=== PATIENT | male | born 1990 | race Caucasian/White ===

== ENCOUNTER 2021-02-17 05:55 | Emergency (ER) | payer SELFPAY ==
--- NOTE | ~2021-02-17 | XR_ITS ---
EXAMINATION: XR CHEST CLINICAL INFORMATION: Rib pain. Injury 3 weeks ago. COMPARISON: None TECHNIQUE: 2 views of the chest were obtained. FINDINGS: The lungs are well expanded. There is no focal consolidation, edema, or effusion. No pneumothorax. The cardiomediastinal silhouette is within normal limits. No acute osseous abnormality. XR/XR chest 2V IMPRESSION: Clear lungs. No displaced fractures are seen. If there is continued concern for rib fracture, consider dedicated rib radiographs.
[2021-02-17 06:08] VITALS: BP 137/91; PULSE 84; RESP 16; TEMP 36.3; O2SAT 97; BMI 35.9
--- NOTE | 2021-02-17 06:37 | ED.GENADULT ---
HPI - General Adult General Chief complaint: General Medical Stated complaint: extreme rip pain for aprox 3 weeks Time Seen by Provider: 02/17/21 06:19 History of Present Illness HPI narrative: 31-year-old male without significant past medical history states that approximately 3 weeks ago he was vomiting profusely and had leaned over the railing in afterwards had some right lower rib discomfort without shortness of breath, fevers, chills and states that it remained tender for the past 3 weeks and then developed worsening of the pain after he again had another vomiting episode this past Wednesday. Again, he denies any fever, chills, shortness of breath except on deep inspiration secondary to the pain and otherwise denies chest pain / palpitations, nausea, vomiting, abdominal pain. Related Data Previous Rx's Medication Instructions Recorded ketorolac 10 mg PO Q6H PRN 5 Days #20 tab 02/17/21 Allergies Allergy/AdvReac Type Severity Reaction Status Date / Time No Known Allergies Allergy Verified 02/17/21 06:07 Review of Systems Review of Systems: Pertinent positives and negatives as stated in HPI 10 point review of systems is otherwise negative. [facility] Past Medical History Source: nursing notes reviewed Social History Social History Advance Directives: No Advance Directives Information Provided: No Physical Exam Vital Signs: Vital Signs: Last Vital Signs Temp 97.4 F 02/17/21 06:08 Pulse 84 02/17/21 06:08 Resp 16 02/17/21 06:08 BP 137/91 H 02/17/21 06:08 Pulse Ox 97 02/17/21 06:08 Body Mass Index 35.9 VITAL SIGNS: Reviewed. GENERAL: Well developed, well nourished, in no acute distress. HEAD: Normocephalic/atraumatic EYES: PERRLA, EOMI EARS: Ext canals without abnormality OROPHARYNX: no oral lesions noted, posterior pharynx clear NECK: Supple, no adenopathy LUNGS: Normal breath sounds. No adventitious sounds or accessory muscle use. SpO2<97>, palpation over left lower anterior chest wall without crepitus mild tenderness on palpation. CARDIOVASCULAR: Regular rate and rhythm without noted murmurs ABDOMEN: Soft, non-tender, non-distended with bowel sounds. SKIN: Inspection of the skin reveals no rashes, ulcerations, jaundice, pallor, or petechiae. NEUROLOGIC: Alert and oriented x 4. Strength and sensation to light touch were grossly intact x 4. Course Course Course Narrative: 31-year-old male with history and clinical presentation consistent with costochondritis/anterior chest wall muscle spasm and review of x-ray negative for acute fracture, pneumonia. All results were discussed with patient at bedside, and he was provided with combination analgesics as well as a lidocaine patch and discharged home in stable condition. Discharge Plan Discharge Clinical Impression: Acute costochondritis, Muscle strain of anterior chest wall Patient Disposition: Home, Self-Care Instructions: Muscle Strain (ED), Costochondritis (ED) Additional Instructions: 1. Tylenol 1000 mg, orally, every 6 hours as needed for pain control. Do not exceed 4000 mg within 24 hours. 2. Recommend lidocaine patch, these are available [id number] and should be apply to area of maximal tenderness as directed on the outside packaging. 3. Please follow-up with your primary care provider in the next 2-3 days for re-evaluation. Return to the ER for acute worsening of your symptoms. Prescriptions: New ketorolac 10 mg tablet 10 mg PO Q6H PRN (Reason: pain) 5 Days Qty: 20 RF: 0 Referrals: Physician,Unknown [Primary Care Provider] - 2 days Interventions: ED Discharge Assessment Last Done: 02/17/21 07:06 Discharge Date/Time: 02/17/21 07:06
[2021-02-17] MEDS: Ketorolac Tromethamine 15 MG/ML VIAL IM (06:58)
[2021-02-17] MEDS: Acetaminophen 325 MG TABLET 975 MG PO (06:59)
[2021-02-17] MEDS: Lidocaine 4 % Patch ADH..PATCH 1 PATCH TRANSDERMA (06:59)
== END 2021-02-17 07:06 | disposition home or self-care (01) ==
PROVIDERS: Emergency Provider Student in an Organized Health Care Education/Training Program
DX: S29.011A Strain of muscle and tendon of front wall of thorax, initial encounter (principal); M94.0 Chondrocostal junction syndrome [Tietze]; X58.XXXA Exposure to other specified factors, initial encounter; Y93.9 Activity, unspecified; Y92.9 Unspecified place or not applicable; Y99.9 Unspecified external cause status
CPT/HCPCS: 71046; 96372; 99283; 99284; J1885

== ENCOUNTER 2021-10-13 19:24 | Emergency (ER) | payer MEDICAID, SELFPAY ==
[2021-10-13 19:28] VITALS: BP 149/87; PULSE 98; RESP 18; TEMP 36.9; O2SAT 98; BMI 34.4
[2021-10-13 22:42] VITALS: BP 131/72; PULSE 82; RESP 18; O2SAT 97
--- NOTE | 2021-10-13 22:46 | ED_ITS ---
HPI - Skin/Abscess/Foreign Bdy General Chief complaint: Skin/Abscess/Foreign Body Stated complaint: abcess on lower back Time Seen by Provider: 10/13/21 22:46 Source: patient Mode of arrival: ambulatory Limitations: no limitations History of Present Illness HPI narrative: This is a 31-year-old male presenting to the emergency department with a recurrent pilonidal cyst that requires draining. Patient tells me that this cyst comes and goes frequently and at times requires draining, he tells me he has had this when coming on for weeks. He tells me at this time it is very painful. He is supposed to get this is surgically removed however he is waiting for his insurance to roll in so it can get covered. He reports 05/25 pain to site. He denies fevers, chills, nausea, vomiting, abdominal pain, chest pain, s hortness of breath. MD complaint: abscess/boil Onset (ago): week(s) Tetanus up to date: yes Location: buttocks Severity: severe Severity scale (1-10): 10 Quality: burning and constant Pain Consistency: constant Relieving factors: none Exacerbating factors: palpation and other (Weightbearing/sitting on) Context: none Associated symptoms: denies other symptoms Treatments prior to arrival: none Related Data Previous Rx's Medication Instructions Recorded ketorolac 10 mg tablet 10 mg PO Q6H PRN 5 Days #20 tab 02/17/21 cephalexin 500 mg tablet 500 mg PO Q6H 10 Days #40 tab 10/13/21 doxycycline hyclate 100 mg capsule 100 mg PO BID 10 Days #20 cap 10/13/21 oxycodone 5 mg capsule 5 mg PO Q6H PRN #10 cap 10/13/21 Allergies Allergy/AdvReac Type Severity Reaction Status Date / Time No Known Allergies Allergy Verified 10/13/21 19:28 Review of Systems Review of Systems: Constitutional : No Fever, No Chills, Cardiovascular : No Chest Pain, No SOB Respiratory : No Dyspnea Gastrointestinal : No abdominal pain Musculoskeletal : No Joint Swelling Skin : No rash, No skin laceration, + abscess. Neuro : No Weakness, No Numbness Psych : No SI/HI Yes all other systems are reviewed and are negative PMFSH Past Medical History Attestation statement: The following information was validated with the patient. Source: old records reviewed and nursing notes reviewed Social History Social History Advance Directives: No Advance Directives Information Provided: No Physical Exam Vital Signs: Vital Signs: Last Vital Signs Temp 98.5 F 10/13/21 19:28 Pulse 82 10/13/21 22:42 Resp 18 10/13/21 22:42 BP 131/72 10/13/21 22:42 Pulse Ox 97 10/13/21 22:42 BMI result Body Mass Index 34.4 VSS Appearance: Alert.? Oriented X3.? No acute distress.? Head: Normocephalic, atraumatic, no step-offs or deformities Eyes: Pupils equal, round and reactive to light.? ENT: Pharynx normal.? Neck: Normal inspection.? Neck supple.? CVS: Normal heart rate and rhythm.? Pulses normal.? Respiratory: No respiratory distress.? Breath sounds normal.? Abdomen: Soft and nontender.? Skin: Skin warm and dry.? Normal skin color.? Normal skin turgor.?+ large painf ul pilonidal cyst measuring about 5 cm x 5 cm. The inferior portion of the pilonidal cyst is a fluctuant however the superior portion of it is indurated. Extremities: No lower extremity edema.? No calf ttp. 5/5 strength to bilateral upper and lower extremities Back: No midline tenderness, no C-spine tenderness, full range of motion, no CVA tenderness bilaterally Neuro: Oriented X 3.? No motor deficit.? No sensory deficit. CN 2-12 intact Course Reevaluation(s) Reevaluation #1: Incision and drainage was done, minimal amount of pus exposed from area less than 5 cc however a lot of blood was exposed from the area. Packing was applied. Patient tolerated procedure well. He tells me he immediately feels relief to the area. He will be discharged home on doxycycline and Keflex. And I will send him home with oxycodone to his pharmacy. Advised him to follow-up with General surgery. Time: 23:15 Reevaluation #2: Upon re-evaluation area is no longer bleeding, patient reports severe pain at the site.Patient is in severe pain will give him oxycodone 5 mg p.o. now as patient is not driving home his brother will pick him up. Advised him to follow-up with surgery, he tells me he will call tomorrow morning to follow up with Dr. Summers. Time: 23:42 MDM - Skin/Abscess/Foreign Bdy MDM Narrative Medical decision making narrative: 1049 31 yo m camilla requesting for a recurrent pilonidal cyst to be drained report severe pain at the site, has been there for weeks. Physical examination significant for a large pilonidal cyst, mos areas are indurated however the inferior portion of it has some fluctuance to it. Plan at this time is to drain the area. Medical Records Attestation: I reviewed the patient's medical records. Lab Data Attestation: I reviewed the patient's lab results. Procedures Abscess I/D Site: alma-rectal Local Anesthetic: lidocaine 2% Amount of anesthesia used (mL): 5 Technique: incised with blade Amount of fluid expressed (mL): 10 Sent for culture/gram staining?: No Irrigation: Yes Packing used?: plain Critical Care Time Critical Care Time Critical Care Time: No Discharge Plan Discharge Clinical Impression: Chronic recurrent pilonidal cyst Patient Disposition: Home, Self-Care Instructions: Pilonidal Cyst (ED), Pilonidal Cyst Excision (DC) Additional Instructions: Take your medications as prescribed. If you were prescribed antibiotics today, it is important that you take your medication to their entirety, do not skip any doses, do not finish them early. Follow-up with your primary care provider this week. Follow-up with General surgery call to schedule an appointment tomorrow Apply warm compresses to the area Return to the emergency department with new or worsening symptoms. Such as fevers, chills, worsening pain, redness to the area, discharge from the area chest pain, shortness of breath, nausea, vomiting, abdominal pain, weakness, lethargy. In case of emergency call 911 Oxycodone has been sent to her pharmacy, this can make you constipated. Please consider taking an [id number] stool softener to help with this. Please do not operate motor vehicle, or drive while taking this. Prescriptions: New doxycycline hyclate 100 mg capsule 100 mg PO BID 10 Days Qty: 20 0RF cephalexin 500 mg tablet 500 mg PO Q6H 10 Days Qty: 40 0RF oxycodone 5 mg capsule 5 mg PO Q6H PRN (Reason: pain) Qty: 10 0RF Rx Instructions: Patient can partially filled prescription upon request No Action ketorolac 10 mg tablet 10 mg PO Q6H PRN (Reason: pain) 5 Days Qty: 20 0RF Rx Instructions: Patient received IM Toradol in the emergency room. Referrals: Lalo Summers MD [Physician] - 1 day Physician,None [Primary Care Provider] - 2 days Stand Alone Forms: Work/School Release
[2021-10-13] MEDS: Lidocaine HCl 2 % MPF 5 ML VIAL SUBCUT (22:49)
[2021-10-13] MEDS: oxyCODONE HCl Immed Release 5 MG TABLET PO (23:58)
[2021-10-13 23:59] VITALS: BP 126/68; PULSE 64; RESP 16; O2SAT 98
--- NOTE | 2021-10-14 00:03 | PC.NURSE ---
provider into assess pt. pt medicated for pain upon discharge. dressing clean dry and intact. Reviewed follow up appointments and medications. pt verbalized understanding.
--- NOTE | 2021-10-14 11:59 | MHC.CM.PN ---
Attempted to meet with patient in regards to discharge planning. Patient currently sleeping. 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 Spoke with patient's HCP, Son via telephone at [phone]. Patient is total care. Copy of HCP verified to be on file. IMM explained and sent to Son's address via certified mail to: [address] [place] [phone]. Patient will return to [facility] via BLS when medically stable. Continue to monitor for d/c needs.
== END 2021-10-14 00:04 | disposition home or self-care (01) ==
PROVIDERS: Emergency Provider Internal Medicine
DX: L05.91 Pilonidal cyst without abscess (principal)
CPT/HCPCS: 10080; 99284

== ENCOUNTER 2021-10-17 20:10 | Emergency (ER) | payer MEDICAID, SELFPAY ==
[2021-10-17 20:11] VITALS: BP 118/76; PULSE 108; RESP 16; TEMP 37.9; O2SAT 97; BMI 35.4
--- NOTE | 2021-10-17 23:07 | ED_ITS ---
HPI - Skin/Abscess/Foreign Bdy General Chief complaint: Skin/Abscess/Foreign Body Stated complaint: wound check Time Seen by Provider: 10/17/21 23:06 Source: patient Mode of arrival: ambulatory Limitations: no limitations History of Present Illness HPI narrative: 31-year-old male presenting to the emergency department with a recurrent pilonidal cyst that requires draining.? Patient tells me that this cyst comes a nd goes frequently and at times requires draining, he tells me he has had this when coming on for weeks, last drained on 10/13/2021.? He tells me at this time it is just as painful as last time and larger.? He is supposed to get this is surgically removed however he is waiting for his insurance to roll in so it can get covered.?He did calll general surgery here to schedule apt. He reports 10/10 pain to site.? He denies fevers, chills, nausea, vomiting, abdominal pain, chest pain, shortness of breath. MD complaint: abscess/boil Tetanus up to date: yes Location: buttocks Severity: severe Severity scale (1-10): >10 Quality: burning and constant Pain Consistency: constant Relieving factors: none Exacerbating factors: other (Sitting on his bottom.) Context: none Associated symptoms: denies other symptoms Treatments prior to arrival: none Related Data Previous Rx's Medication Instructions Recorded ketorolac 10 mg tablet 10 mg PO Q6H PRN 5 Days #20 tab 02/17/21 cephalexin 500 mg tablet 500 mg PO Q6H 10 Days #40 tab 10/13/21 doxycycline hyclate 100 mg capsule 100 mg PO BID 10 Days #20 cap 10/13/21 oxycodone 5 mg capsule 5 mg PO Q6H PRN #10 cap 10/13/21 Allergies Allergy/AdvReac Type Severity Reaction Status Date / Time No Known Allergies Allergy Verified 10/13/21 19:28 Review of Systems Review of Systems: Constitutional : No Fever, No Chills, Cardiovascular : No Chest Pain, No SOB Respiratory : No Dyspnea Gastrointestinal : No abdominal pain Musculoskeletal : No Joint Swelling Skin : No rash, No skin laceration, + abscess. Neuro : No Weakness, No Numbness Psych : No SI/HI ? Yes all other systems are reviewed and are negative Yes all other systems are reviewed and are negative PMFSH Past Medical History Attestation statement: The following information was validated with the patient. Source: old records reviewed and nursing notes reviewed Social History Social History Patient Tobacco Use Status: Current everyday Tobacco user Advance Directives: No Advance Directives Information Provided: No service: No Current occupational status: disabled Physical Exam Vital Signs: Vital Signs: Last Vital Signs Temp 100.2 F 10/17/21 20:11 Pulse 108 H 10/17/21 20:11 Resp 16 10/17/21 20:11 BP 118/76 10/17/21 20:11 Pulse Ox 97 10/17/21 20:11 BMI result Body Mass Index 35.4 Patient w/ low grade fever Appearance: Alert.? Oriented X3.? No acute distress.? Head:? Normocephalic, atraumatic, no step-offs or deformities Eyes: Pupils equal, round and reactive to light.? ENT: Pharynx normal.? Neck: Normal inspection.? Neck supple.? CVS: Normal heart rate and rhythm.? Pulses normal.? Respiratory: No respiratory distress.? Breath sounds normal.? Abdomen: Soft and nontender.? Skin: Skin warm and dry.? Normal skin color.? Normal skin turgor.?+ large painful pilonidal cyst measuring about 5 cm x 5 cm.? The inferior portion of the pilonidal cyst is a indurated however the superior portion of it is fluctuant. Extremities: No lower extremity edema.? No calf ttp.? 5/5 strength to bilateral upper and lower extremities Back:? No midline tenderness, no C-spine tenderness, full range of motion, no CVA tenderness bilaterally Neuro: Oriented X 3.? No motor deficit.? No sensory deficit. CN 2-12 intact Course Reevaluation(s) Reevaluation #1: Incision and drainage was done, with a large amount of amount of pus exposed from area about 120 cc. No packing was applied.? Patient tolerated procedure well.? He tells me he immediately feels relief to the area.? He is currently on doxycycline and Keflex. Advised him to continue these an tibiotics. He has oxycodone at home for pain. Advised him to follow-up with General surgery and his PCP. I also advised him to return for a wound check. Comfortable with discharge home. Time: :10 MDM - Skin/Abscess/Foreign Bdy [facility] Narrative Medical decision making narrative: [id number] 31 yo m presnts requesting for a recurrent pilonidal cyst to be drained report severe pain at the site, has been there for weeks. Physical examination significant for a large pilonidal cyst, mos areas are indurated however the inferior portion of it has some fluctuance to it. Plan at this time is to drain the area. Medical Records Attestation: I reviewed the patient's medical records. Lab Data Attestation: I reviewed the patient's lab results. Procedures Abscess I/D Site: other (Pilonidal cyst) Local Anesthetic: lidocaine 2% Amount of anesthesia used (mL): 10 Technique: needle aspiration and incised with blade Amount of fluid expressed (mL): 120 Sent for culture/gram staining?: No Irrigation: Yes Packing used?: none Critical Care Time Critical Care Time Critical Care Time: No Discharge Plan Discharge Clinical Impression: Chronic recurrent pilonidal cyst Patient Disposition: Home, Self-Care Instructions: Pilonidal Cyst (ED), Pilonidal Cyst Excision (DC) Additional Instructions: Take your medications as prescribed.? If you were prescribed antibiotics today, it is important that you take your medication to their entirety, do not skip any doses, do not finish them early. Follow-up with your primary care provider this week.? Follow-up with General inocente isaiah call to schedule an appointment?tomorrow Apply warm compresses to the area Return to the emergency department with new or worsening symptoms.? Such as fevers, chills, worsening pain, redness to the area, discharge from the area chest pain, shortness of breath, nausea, vomiting, abdominal pain, weakness, lethargy. In case of emergency call 911 Prescriptions: No Action ketorolac 10 mg tablet 10 mg PO Q6H PRN (Reason: pain) 5 Days Qty: 20 0RF Rx Instructions: Patient received IM Toradol in the emergency room. doxycycline hyclate 100 mg capsule 100 mg PO BID 10 Days Qty: 20 0RF cephalexin 500 mg tablet 500 mg PO Q6H 10 Days Qty: 40 0RF oxycodone 5 mg capsule 5 mg PO Q6H PRN (Reason: pain) Qty: 10 0RF Rx Instructions: Patient can partially filled prescription upon request Referrals: Lalo Summers MD [Physician] - 2 days Stand Alone Forms: Work/School Release
[2021-10-17] MEDS: Lidocaine HCl 2 % MPF 5 ML VIAL SUBCUT ×2 (23:15)
--- NOTE | 2021-10-18 00:30 | PC.NURSE ---
Provider into assess pt and treat abscess. Discussion of care plan. Pt verbalized understanding.
== END 2021-10-18 00:38 | disposition home or self-care (01) ==
PROVIDERS: Emergency Provider Emergency Medicine Emergency Medical Services
DX: L05.01 Pilonidal cyst with abscess (principal); F17.200 Nicotine dependence, unspecified, uncomplicated; Z71.6 Tobacco abuse counseling; Z79.899 Other long term (current) drug therapy
CPT/HCPCS: 10060; 99284

== ENCOUNTER 2022-01-19 17:46 | Emergency (ER) | payer MEDICAID, SELFPAY ==
[2022-01-19 17:48] VITALS: BP 149/82; PULSE 110; RESP 20; TEMP 37.1; O2SAT 98; BMI 34.1
--- NOTE | 2022-01-19 19:55 | ED_ITS ---
HPI - Skin/Abscess/Foreign Bdy General Chief complaint: Skin/Abscess/Foreign Body Stated complaint: Cyst on Low Back Time Seen by Provider: 01/19/22 19:49 Source: patient Mode of arrival: ambulatory Limitations: no limitations History of Present Illness HPI narrative: Patient presents emergency department for evaluation of pilonidal cyst. He reports that he has had a chronic recurrent pilonidal cyst requiring multiple drainages in the past. He has a surgery scheduled in the next couple of weeks for surgical removal. He states that 3 days ago he bumped his back in to a door, causing the area to become increasingly more painful, and swollen. He states that he feels like it needs to be drained. Denies fevers, chills, chest pain, palpitations, shortness of breath, difficulty breathing, nausea, vomiting, abdominal pain. MD complaint: abscess/boil Tetanus up to date: yes Location: buttocks Severity: moderate Severity scale (1-10): 7 Quality: burning Pain Consistency: constant Relieving factors: none Exacerbating factors: other (Pressure with sitting) Context: none Associated symptoms: denies other symptoms Treatments prior to arrival: none Related Data Previous Rx's Medication Instructions Recorded ketorolac 10 mg tablet 10 mg PO Q6H PRN 5 Days #20 tab 02/17/21 cephalexin 500 mg tablet 500 mg PO Q6H 10 Days #40 tab 10/13/21 doxycycline hyclate 100 mg capsule 100 mg PO BID 10 Days #20 cap 10/13/21 oxycodone 5 mg capsule 5 mg PO Q6H PRN #10 cap 10/13/21 cephalexin 500 mg capsule 500 mg PO QID 7 Days #28 cap 01/19/22 doxycycline hyclate 100 mg capsule 100 mg PO BID 7 Days #14 cap 01/19/22 Allergies Allergy/AdvReac Type Severity Reaction Status Date / Time No Known Allergies Allergy Verified 10/13/21 19:28 Review of Systems Review of Systems: Skin: No rash, no laceration, positive abscess. Yes all other systems are reviewed and are negative [facility] Past Medical History Attestation statement: The following information was validated with the patient. Source: old records reviewed Social History Social History Patient Tobacco Use Status: Never used Tobacco Advance Directives: No Advance Directives Information Provided: No service: No Current occupational status: disabled Physical Exam Vital Signs: Vital Signs: Last Vital Signs Temp 99 F 01/19/22 20:40 Pulse 95 01/19/22 20:40 Resp 20 01/19/22 17:48 BP 134/72 01/19/22 20:40 Pulse Ox 98 01/19/22 20:40 BMI result Body Mass Index 34.1 Vital signs have been reviewed and appeared to be correct. Mildly hypertensive in tachycardic? Respiration rate normal. Temperature normal.? Oxygen saturation normal. Appearance: Alert.?Oriented to person, place and time. No acute distress.?Normal affect. Eyes: Pupils equal, round and reactive to light.? ENT: Pharynx normal.?? Neck: Normal inspection.? Neck supple.?? CVS: Heart sounds normal. Normal heart rate and rhythm.? Pulses normal.?? Respiratory: No respiratory distress.? Lung sounds clear to auscultation bilaterally?? Abdomen: Soft and non-tender. Normoactive bowel sounds. No pulsatile mass.?? Skin: Skin warm and dry.? Normal skin color.? Positive pilonidal cyst, tender to palpation, 4 cm x 4 cm, predominantly indurated, however there is some mild central fluctuance. Extremities: No lower extremity edema.? Neuro: Moves all extremities spontaneously. Sensation intact bilaterally. No motor deficits. Ambulates with normal steady gait. Course Course Course Narrative: Patient is a 31-year-old male with a past medical history of recurrent pilonidal cyst, awaiting surgical excision. Presenting for evaluation of worsening pain and swelling. Mild tachycardia and hypertensive upon arrival but this is likely secondary to pain and anxiety. History physical exam consistent with pilonidal cyst. No systemic toxicity, and patient is well-appearing. There is surrounding cellulitis. Not consistent with necrotizing fasciitis, myositis, DVT, osteomyelitis. patient is now status post needle aspiration drainage of abscess and tolerated the procedure well. No complications. No labs or imaging indicated at this time. Will discharge home with course of oral antibiotics and symptomatic treatment instructions. Discussed reasons to return to the emergency department, and follow-up with surgeon. Patient agreeable with plan of care. Procedures Abscess I/D Site: other (Pilonidal cyst) Side (if applicable): left Local Anesthetic: lidocaine 1% Amount of anesthesia used (mL): 3 Technique: needle aspiration Amount of fluid expressed (mL): 3 Packing used?: none Discharge Plan Discharge Clinical Impression: Chronic recurrent pilonidal cyst Patient Disposition: Home, Self-Care Instructions: Pilonidal Cyst (ED) Additional Instructions: You been given 2 antibiotics, please complete this entire course, do not stop them early. You may use Tylenol or ibuprofen as needed for pain. Please follow-up with your surgeon for scheduled procedure for removal. Return to the emergency department any new or worsening symptoms or concerns. Prescriptions: New cephalexin 500 mg capsule 500 mg PO QID 7 Days Qty: 28 0RF doxycycline hyclate 100 mg capsule 100 mg PO BID 7 Days Qty: 14 0RF No Action ketorolac 10 mg tablet 10 mg PO Q6H PRN (Reason: pain) 5 Days Qty: 20 0RF Rx Instructions: Patient received IM Toradol in the emergency room. doxycycline hyclate 100 mg capsule 100 mg PO BID 10 Days Qty: 20 0RF cephalexin 500 mg tablet 500 mg PO Q6H 10 Days Qty: 40 0RF oxycodone 5 mg capsule 5 mg PO Q6H PRN (Reason: pain) Qty: 10 0RF Rx Instructions: Patient can partially filled prescription upon request Stand Alone Forms: Work/School Release Interventions: ED Discharge Assessment Last Done: 01/19/22 21:22 Discharge Date/Time: 01/19/22 21:23
[2022-01-19] MEDS: Lidocaine HCl 1 % MPF 5 ML VIAL SUBCUT (20:06)
[2022-01-19 20:40] VITALS: BP 134/72; PULSE 95; TEMP 37.2; O2SAT 98
== END 2022-01-19 21:23 | disposition home or self-care (01) ==
PROVIDERS: Emergency Provider Emergency Medicine
DX: L05.01 Pilonidal cyst with abscess (principal)
CPT/HCPCS: 10080; 99282; 99284

== ENCOUNTER 2022-01-21 16:38 | Emergency (ER) | payer MEDICAID, SELFPAY ==
[2022-01-21 17:20] VITALS: BP 126/76; PULSE 110; RESP 18; TEMP 37.4; O2SAT 98; BMI 34.1
--- NOTE | 2022-01-21 19:28 | ED.GENADULT ---
HPI - General Adult General Chief complaint: Skin/Abscess/Foreign Body Stated complaint: lower back cyst Time Seen by Provider: 01/21/22 19:28 Source: patient Mode of arrival: ambulatory Limitations: no limitations History of Present Illness HPI narrative: Patient is a 32 year old male presenting to the emergency department today with a pilonidal cyst. Patient states that he gets this regularly and needs to have his drained. Patient states that he has an appointment with Dr. Summers, the general surgeon, but it isn't until later this month. Patient states that he is currently on antibiotics for this but needs it drained as well. Patient denies any dizziness, lightheadedness, abdominal pain, nausea, vomiting, fever, chills, blurry vision, double vision, loss of vision, chest pain, difficulty breathing, shortness of breath, back pain, night sweats, pain with urination, increased urinary frequency, increased urinary urgency, blood in his urine or stool, syncope or a near syncopal episode, recent trauma or falls, bowel incontinence, bladder incontinence, bowel retention, bladder retention, or any other complaints at this time. Onset (ago): day(s) Location: buttocks Radiation: non-radiation Severity: mild Severity scale (1-10): 3 Quality: dull Pain Consistency: constant Relieving factors: none Exacerbating factors: none Associated symptoms: denies other symptoms Treatments prior to arrival: none Related Data Previous Rx's Medication Instructions Recorded ketorolac 10 mg tablet 10 mg PO Q6H PRN pain 5 days #20 02/17/21 tabs cephalexin 500 mg tablet 500 mg PO Q6H 10 days #40 tabs 10/13/21 doxycycline hyclate 100 mg capsule 100 mg PO BID 10 days #20 caps 10/13/21 oxycodone 5 mg capsule 5 mg PO Q6H PRN pain #10 caps 10/13/21 cephalexin 500 mg capsule 500 mg PO QID 7 days #28 caps 01/19/22 doxycycline hyclate 100 mg capsule 100 mg PO BID 7 days #14 caps 01/19/22 Allergies Allergy/AdvReac Type Severity Reaction Status Date / Time No Known Allergies Allergy Verified 10/13/21 19:28 Review of Systems Constitutional: Constitutional: Reports no additional constitutional complaints, Denies chills, Denies fever(s) and Denies night sweats Eyes: Eyes: Reports no additional eye complaints, Denies blurry vision, Denies change in vision, Denies diplopia, Denies eye discharge, Denies loss of vision and Denies eye pain ENT: Denies dizziness Cardiovascular: Cardiovascular: Reports no additional cardiovascular complaints, Denies chest pain, Denies lightheadedness, Denies Loss of Consciousness and Denies dyspnea Respiratory: Respiratory: Reports no additional respiratory complaints and Denies dyspnea Gastrointestinal: Gastrointestinal: Reports no additional gastrointestinal complaints, Denies abdominal pain, Denies melena, Denies hematochezia, Denies change in bowel habits and Denies change in stool character Genitourinary: Genitourinary: Reports no additional male genitourinary complaints, Denies hematuria, Denies oliguria, Denies difficulty urinating, Denies dysuria, Denies urinary frequency, Denies urinary hesitancy, Denies urinary incontinence and Denies urinary urgency Musculoskeletal: Musculoskeletal: Reports no additional musculoskeletal complaints, Denies numbness and Denies tingling Integumentary/Breasts: Comments: pilonidal cyst Neurologic: Denies dizziness, Denies loss of vision, Denies numbness and Denies tingling Psychiatric: Psychiatric: Reports no additional psychiatric complaints Endocrine: Endocrine: Reports no additional endocrine complaints Hematologic/Lymphatic: Hematologic/Lymphatic: Reports no additional hematologic/lymphatic complaints Allergic/Immunologic: Allergic/Immunologic: Reports no additional allergic/immunologic complaints PMFSH Past Medical History Attestation statement: The following information was validated with the patient. Source: old records reviewed Social History Social History Patient Tobacco Use Status: Never used Tobacco Advance Directives: No Advance Directives Information Provided: No service: No Current occupational status: disabled Physical Exam ED Vital Signs: Vital Signs - 24 hr 01/21/22 17:20 Temperature 99.3 F Pulse Rate 110 H Respiratory Rate 18 Blood Pressure 126/76 Pulse Oximetry 98 Oxygen Delivery Method Room Air BMI result Body Mass Index 34.1 Const General: cooperative, no acute distress, alert and awake Nutritional Appearance: well nourished Orientation/consciousness: patient oriented x3 Limitations: no limitations HENMT Head: Yes normal to inspection and Yes atraumatic Ears: hearing grossly normal bilaterally and external ears normal General nose exam: Normal external nose present, no nasal discharge noted and no epistaxis Face and sinus: Yes normal facial exam, No abrasion and No laceration Mouth: Normal oral and palatal mucosa present, no drooling and no muffled voice Eyes General: appearance normal, both eyes and all related structures Periorbital: periorbital findings normal Eyelids: Yes eyelids normal Conjunctivae: conjunctivae normal Pupils: Equal, round and reactive pupils present EOM: EOMs intact bilaterally Neck Neck: Yes normal visual inspection, Yes full ROM and Yes no lymphadenopathy Chest Chest palpation & inspection: normal inspection of the chest Resp Effort & Inspection: normal respiratory effort and able to speak in complete sentences Auscultation: clear to auscultation bilaterally Cardio Rate: regular rate Rhythm: regular rhythm GI Inspection: Yes normal to inspection Skin Other: patient has a 5cm x 5cm pilonidal cyst to the most superior aspect of the gluteal cleft Neuro General: patient oriented x3 and moves all extremities Cranial nerves: Yes Equal, round and reactive pupils present Cognition (Neuro): normal cognition Motor exam (neuro): 5/5 motor strength present throughout Sensory Exam: Normal double simultaneous stimulation for sensation Coordination: [id number] test normal Extrem General: Yes normal to inspection, Yes full ROM and Yes capillary refill normal Psych Appearance: grossly normal Mental Status: mental status grossly normal Affect: normal affect Attitude: cooperative Thought process: Normal thought process present Thought content: Normal thought content present Insight: Good insight present (Psych) Procedures Abscess I/D Site: other (superior aspect of gluteal cleft) Technique: needle aspiration Amount of fluid expressed (mL): 52 Sent for culture/gram staining?: No Irrigation: No Packing used?: none Medical Decision Making MDM Narrative Medical decision making narrative: Patient is a 32 year old male presenting to the emergency department today with a recurrent piloidal cyst. Patient's physical exam showed a 5cm x 5cm pilonidal cyst to the most superior aspect of the gluteal cleft. Patient's cyst was drained per procedure note, without incident. I explained my physical exam findings to the patient. I answered all questions asked by the patient. I stressed the importance of the patient taking his medication as prescribed. I stressed the importance of the patient following up with his primary care provider and general surgeon. I stressed the importance of the patient returning to the emergency department immediately if his symptoms were to worsen or if he were to develop any dizziness, shortness of breath, difficulty breathing, chest pain, blurry vision, loss of vision, nausea, vomiting, abdominal pain, fever, chills, back pain, or any other complaints. Patient verbalized agreement and understanding with this treatment plan and discharge. Differential Diagnosis Differential Diagnosis: Pilonidal cyst, abscess Medical Records Medical records reviewed: Yes I reviewed the patient's medical records. Discharge Plan Discharge Clinical Impression: Abscess Patient Disposition: Home, Self-Care Instructions: Abscess (ED) Additional Instructions: Follow up with your primary care provider and general surgeon. Return to the emergency department immediately if your symptoms worsen or if you develop any dizziness, shortness of breath, difficulty breathing, chest pain, blurry vision, loss of vision, nausea, vomiting, abdominal pain, fever, chills, back pain, or any other complaints. Prescriptions: No Action ketorolac 10 mg tablet 10 mg PO Q6H PRN (Reason: pain) 5 Days Qty: 20 0RF Rx Instructions: Patient received IM Toradol in the emergency room. doxycycline hyclate 100 mg capsule 100 mg PO BID 10 Days Qty: 20 0RF cephalexin 500 mg tablet 500 mg PO Q6H 10 Days Qty: 40 0RF oxycodone 5 mg capsule 5 mg PO Q6H PRN (Reason: pain) Qty: 10 0RF Rx Instructions: Patient can partially filled prescription upon request cephalexin 500 mg capsule 500 mg PO QID 7 Days Qty: 28 0RF doxycycline hyclate 100 mg capsule 100 mg PO BID 7 Days Qty: 14 0RF Referrals: [facility] [place] Family Medicine [Provider Group] (Call to establish with a primary care provider. If you have one already, follow up with their office. ) [facility] [place] [facility] [Provider Group] (Call to establish with a primary care provider. If you have one already, follow up with their office. ) [facility] [place] [facility] [Provider Group] (Call to establish with a primary care provider. If you have one already, follow up with their office. ) Lalo Summers MD [Physician] - Stand Alone Forms: Work/School Release Interventions: ED Discharge Assessment Last Done: 01/21/22 19:52 Discharge Date/Time: 01/21/22 19:53 Print Language: Slovak
== END 2022-01-21 19:53 | disposition home or self-care (01) ==
PROVIDERS: Emergency Provider Internal Medicine
DX: L05.01 Pilonidal cyst with abscess (principal)
CPT/HCPCS: 10080; 99284

== ENCOUNTER 2024-01-30 14:09 | Emergency (ER) | payer MEDICAID, SELFPAY ==
[2024-01-30 14:13] VITALS: BP 146/93; PULSE 109; RESP 19; TEMP 36.6; O2SAT 99; BMI 35.4
--- NOTE | 2024-01-30 14:15 | ED_ITS ---
HPI - General Adult General Chief complaint: Wound/Laceration Stated complaint: cyst Time Seen by Provider: 01/30/24 14:37 Source: patient Mode of arrival: ambulatory Limitations: no limitations History of Present Illness ED Provider: eJs Khan PA-C HPI narrative: Patient is a 34 year old assigned male at with a history of pilonidal cysts/abscesses presenting to the emergency department today with a pilonidal abscess. Patient states that he has an issue with recurring pilonidal cysts/abscesses. Patient states that he was working with the general surgeon Dr. Summers to have a procedure to take care of them when something happened with his insurance and that fell through. Patient states that over the last few days he has had a recurrence of the abscess and needs it drained. Patient denies any dizziness, lightheadedness, abdominal pain, nausea, vomiting, fever, chills, blurry vision, double vision, loss of vision, chest pain, difficulty breathing, shortness of breath, back pain, night sweats, pain with urination, increased urinary frequency, increased urinary urgency, blood in his urine or stool, syncope or a near syncopal episode, recent trauma or falls, bowel incontinence, bladder incontinence, or any other complaints at this time. Onset (ago): day(s) Location: buttocks Radiation: non-radiation Severity: mild Severity scale (1-10): 3 Quality: aching and dull Pain Consistency: constant Relieving factors: none Exacerbating factors: none Associated symptoms: denies other symptoms Treatments prior to arrival: none Related Data Previous Rx's ?Medication ?Instructions ?Recorded ketorolac 10 mg tablet 10 mg PO Q6H PRN pain 5 days #20 02/17/21 tabs cephalexin 500 mg tablet 500 mg PO Q6H 10 days #40 tabs 10/13/21 doxycycline hyclate 100 mg capsule 100 mg PO BID 10 days #20 caps 10/13/21 oxycodone 5 mg capsule 5 mg PO Q6H PRN pain #10 caps 10/13/21 cephalexin 500 mg capsule 500 mg PO QID 7 days #28 caps 01/19/22 doxycycline hyclate 100 mg capsule 100 mg PO BID 7 days #14 caps 01/19/22 cephalexin 500 mg capsule 500 mg PO Q6H 7 days #28 caps 01/30/24 doxycycline hyclate 100 mg tablet 100 mg PO BID 7 days #14 tabs 01/30/24 Allergies Allergy/AdvReac Type Severity Reaction Status Date / Time No Known Allergies Allergy Verified 01/30/24 14:14 Review of Systems 2 Constitutional: Constitutional: Reports no additional constitutional complaints, Denies chills, Denies fever(s) and Denies night sweats Eyes: Eyes: Reports no additional eye complaints, Denies blurry vision, Denies change in vision, Denies diplopia, Denies eye discharge, Denies loss of vision and Denies eye pain ENT: Denies dizziness Cardiovascular: Cardiovascular: Reports no additional cardiovascular complaints, Denies chest pain, Denies lightheadedness, Denies Loss of Consciousness and Denies dyspnea Respiratory: Respiratory: Reports no additional respiratory complaints and Denies dyspnea Gastrointestinal: Gastrointestinal: Reports no additional gastrointestinal complaints, Denies abdominal pain, Denies melena, Denies hematochezia, Denies change in bowel habits and Denies change in stool character Comments: pilonidal abscess Genitourinary: Genitourinary: Reports no additional male genitourinary complaints, Denies hematuria, Denies oliguria, Denies difficulty urinating, Denies dysuria, Denies urinary frequency, Denies urinary hesitancy, Denies urinary incontinence and Denies urinary urgency Musculoskeletal: Musculoskeletal: Reports no additional musculoskeletal complaints, Denies numbness and Denies tingling Neurologic: Denies dizziness, Denies loss of vision, Denies numbness and Denies tingling Psychiatric: Psychiatric: Reports no additional psychiatric complaints Endocrine: Endocrine: Reports no additional endocrine complaints Hematologic/Lymphatic: Hematologic/Lymphatic: Reports no additional hematologic/lymphatic complaints Allergic/Immunologic: Allergic/Immunologic: Reports no additional allergic/immunologic complaints [facility] Past Medical History Attestation statement: The following information was validated with the patient. Source: old records reviewed and nursing notes reviewed Social History Social History Patient Tobacco Use Status: Never used Tobacco Advance Directives: No Advance Directives Information Provided: No service: No Current occupational status: disabled Physical Exam ED Vital Signs: Vital Signs - 24 hr 01/30/24 14:13 01/30/24 15:09 Temperature 98 F 98 F Pulse Rate 109 H 109 H Respiratory Rate 19 19 Blood Pressure 146/93 H 146/93 H Pulse Oximetry 99 99 Oxygen Delivery Method Room Air Room Air BMI result Body Mass Index 35.4 Const General: cooperative, no acute distress, alert and awake Nutritional Appearance: well nourished Orientation/consciousness: patient oriented x3 Limitations: no limitations HENMT Head: Yes normal to inspection and Yes atraumatic Ears: hearing grossly normal bilaterally and external ears normal General nose exam: Normal external nose present, no nasal discharge noted and no epistaxis Face and sinus: Yes normal facial exam, No abrasion and No laceration Mouth: Normal oral and palatal mucosa present, no drooling and no muffled voice Eyes General: appearance normal, both eyes and all related structures Periorbital: periorbital findings normal Eyelids: Yes eyelids normal Conjunctivae: conjunctivae normal Pupils: Equal, round and reactive pupils present EOM: EOMs intact bilaterally Neck Neck: Yes normal visual inspection, Yes full ROM and Yes no lymphadenopathy Chest Chest palpation & inspection: normal inspection of the chest Resp Effort & Inspection: normal respiratory effort and able to speak in complete sentences Neuro General: patient oriented x3 and moves all extremities Cranial nerves: Yes Equal, round and reactive pupils present Cognition (Neuro): normal cognition Motor exam (neuro): 5/5 motor strength present throughout Sensory Exam: Normal double simultaneous stimulation for sensation Coordination: [id number] test normal Extrem General: Yes full ROM and Yes capillary refill normal Upper/lower leg/hip images: 2 1. pilonidal abscess present with fluctuance Psych Appearance: grossly normal Mental Status: mental status grossly normal Affect: normal affect Attitude: cooperative Thought process: Normal thought process present Thought content: Normal thought content present Insight: Good insight present (Psych) Course Course Course Narrative: This is a Rapid Medical Examination (RME) performed by Papa Mcknight PA-C in triage. Full HPI, ROS, assessment and treatment plan per primary provider in the Main ED. 34 yo male hx of recurrent pilonidal cysts here for eval of lower back cyst x days. As follow-up scheduled with Dr. Summers however reports increased pain to the area. Unable to sit due to pain. Denies fever, chills, drainage. Well- appearing in triage however refusing to sit due to pain. Exam limited in triage room. Plan: possible I&D per primary provider Procedures Abscess I/D Site: other (pilonidal) Technique: needle aspiration Amount of fluid expressed (mL): 30 Sent for culture/gram staining?: No Irrigation: No Packing used?: none Medical Decision Making Medical Decision Making MDM Narrative: Patient is a 34 year old assigned male at with a history of recurrent pilonidal cysts / abscesses presenting to the emergency department today with a recurrence of a pilonidal abscess. Patient's physical exam showed an obvious pilonidal abscess with flutuance. I explained my physical exam findings to the patient. I answered all questions asked by the patient. Patient's abscess was drained, per procedure note, without incident. I stressed the importance of the patient taking his medication as prescribed. I stressed the importance of the patient following up with his primary care provider and the general surgeon. I stressed the importance of the patient returning to the emergency department immediately if his symptoms were to worsen or if he were to develop any dizziness, shortness of breath, difficulty breathing, chest pain, blurry vision, loss of vision, nausea, vomiting, abdominal pain, fever, chills, back pain, or any other complaints. Patient verbalized agreement and understanding with this treatment plan and discharge. Differential Diagnosis Differential Diagnoses: The differential diagnosis associated with the presentation includes Pilonidal abscess Pilonidal cyst Admission/Observation Consideration of admission/observation: Escalation of care including admission/observation considered Patient would have been admitted to the hospital had his clinical presentation warranted hospital admission. Prescription Management I considered prescription management with: Antibiotic (patient prescribed an antibiotic for pilonidal abscess) Discharge Plan Discharge Clinical Impression: Pilonidal abscess Patient Disposition: Home, Self-Care Instructions: Pilonidal Cyst (ED), Abscess (ED) Additional Instructions: Take your antibiotic as prescribed. Follow up with your primary care provider and your general surgeon. Let the area continue to drain. Apply warm compresses to the area. Return to the emergency department immediately if your symptoms worsen or if you develop any dizziness, shortness of breath, difficulty breathing, chest pain, blurry vision, loss of vision, nausea, vomiting, abdominal pain, fever, chills, back pain, or any other complaints. Prescriptions: New cephalexin 500 mg capsule 500 mg PO Q6H 7 Days Qty: 28 0RF doxycycline hyclate 100 mg tablet 100 mg PO BID 7 Days Qty: 14 0RF No Action ketorolac 10 mg tablet 10 mg PO Q6H PRN (Reason: pain) 5 Days Qty: 20 0RF Rx Instructions: Patient received IM Toradol in the emergency room. doxycycline hyclate 100 mg capsule 100 mg PO BID 10 Days Qty: 20 0RF cephalexin 500 mg tablet 500 mg PO Q6H 10 Days Qty: 40 0RF oxycodone 5 mg capsule 5 mg PO Q6H PRN (Reason: pain) Qty: 10 0RF Rx Instructions: Patient can partially filled prescription upon request cephalexin 500 mg capsule 500 mg PO QID 7 Days Qty: 28 0RF doxycycline hyclate 100 mg capsule 100 mg PO BID 7 Days Qty: 14 0RF [place] [facility] [place]Provider Group] (Call to establish and follow up with your general surgeon.) [facility] [place] [Provider Group] (Call to establish and follow up with a primary care provider. If you already have a primary care provider, please follow up with them.) [facility] [place] [facility] [Provider Group] [facility] [place] [facility] [Provider Group] Stand Alone Forms: Work/School Release Interventions: ED Discharge Assessment Last Done: 01/30/24 15:09 Discharge Date/Time: 01/30/24 15:09 Print Language: French
[2024-01-30 15:09] VITALS: BP 146/93; PULSE 109; RESP 19; TEMP 36.6; O2SAT 99
== END 2024-01-30 15:09 | disposition home or self-care (01) ==
PROVIDERS: Emergency Provider Emergency Medicine Emergency Medical Services
DX: L05.01 Pilonidal cyst with abscess (principal)
CPT/HCPCS: 10160; 99282; 99283